=== PATIENT | male | born 1980 | race Caucasian/White ===

== ENCOUNTER → 2016-11-11 | Day surgery (SDC) | payer OTHER ==
[~2016-11-11] VITALS: Ht 182.9 cm; Wt 110.4 kg
[~2016-11-11] MED LIST: ACETAMINOPHEN 1000 MG/100 ML VIAL IV SCH; BUPIVACAINE/EPINEPHRINE 0.5% PF 30 ML VIAL INFIL ONE; DEXAMETHASONE SOD PHOS 4 MG/ML VIAL ONE; DICLOFENAC SODIUM 37.5 MG/ML VIAL IV PUSH ONE; DO NOT ADM ANY ANTICOAGULANT DRUGS XX PRN; FAMOTIDINE 20 MG/2 ML VIAL ONE; INSULIN HUMAN REGULAR 1,000 UNITS/10 ML VIAL SQ PRN; LACTATED RINGER'S 1000 ML INJ 1,000 ML IV ONE; LACTATED RINGER'S 1000 ML IV SCH; MEPERIDINE HCL 50 MG/ML VIAL ONE; METOPROLOL TARTRATE 25 MG TAB PO PRN; MIDAZOLAM HCL 2 MG/2 ML VIAL ONE; MORPHINE SULFATE 4 MG/ML INJ IV PRN; NEOSTIGMINE 3 MG/3 ML SYR IV ONE; ONDANSETRON HCL 4 MG/2 ML VIAL IV PRN; ONDANSETRON HCL 4 MG/2 ML VIAL IV PUSH ONE; ONDANSETRON HCL 4 MG/2 ML VIAL IV PUSH SCH; PROPOFOL 200 MG/20 ML AMP IV ONE; SODIUM CHLORID 0.9% 500 ML IV SCH; SODIUM CHLORIDE 5 ML FLUSH BID IVF SCH; SODIUM CHLORIDE 5 ML FLUSH PRN IVF; VANCOMYCIN 1,000 MG/NS 250ML (for <70 kg) IV SCH; ZOLO100T PO; fentaNYL CITRATE 250 MCG/5 ML AMP ONE; oxyCODONE/ACETAMINOPHEN 5 MG/325 MG TAB PO PRN
[2016-11-11 10:05] VITALS: BP 139/81; PULSE 44; RESP 18; TEMP 98.3; O2SAT 99
[2016-11-11] MEDS: metroNIDAZOLE 500 MG INJ 100 ML IV SCH ×2 (12:37→12:56)
[2016-11-11 16:15] VITALS: BP 121/59; PULSE 53; RESP 16; O2SAT 96
--- NOTE | 2016-11-19 07:51 | MP ---
cc: MARIO CLIFFORD DATE OF OPERATION 11/11/2016 DATE OF 1980 PREOPERATIVE DIAGNOSIS Left inguinal hernia POSTOPERATIVE DIAGNOSIS Left inguinal hernia PROCEDURE Laparoscopic repair of a left inguinal hernia TEPP with 12 x 15 Ultrapro mesh. SURGEON Mario Clifford MD CO-SURGEON MD Dr. Caesar Soto was needed for the preschool assistant during the procedure for visualization and manipulation. The preschool assistant provided by the hospital wall was utilized at the back table. ANESTHESIA General endotracheal anesthesia ESTIMATED BLOOD LOSS Scant FINDINGS Indirect inguinal hernia. COMPLICATIONS None OPERATION The patient was brought to the operating room and placed on operating table in the supine position. Bilateral sequential inflation devices placed on lower extremities. General anesthesia instituted. Ceron catheter placed. Antibiotics initiated. The abdomen was prepped and draped sterilely. The infraumbilical region was anesthetized with quarter percent Marcaine with epinephrine. A skin incision was made vertically. It was taken through the subcutaneous tissue. The anterior rectus sheath was encountered. It was incised to the left of the midline. The rectus muscle was retracted laterally. The preperitoneal space was dissected first with finger dissection followed by balloon dissection. A self-retaining balloon trocar was then placed. CO2 insufflated into the preperitoneal space to a pressure of 12 mmHg. The two 5 mm ports were placed in the midline infraumbilically. The dissection started at Antwon's ligament in the pubis followed by the direct space, reducing preperitoneal fat out of the direct hernia inguinal space. This space was dissected laterally to the psoas muscle. A lipoma of the cord was identified. This was retracted off of the cord. The hernia sac was also retracted off of the cord into the preperitoneal space. A 12 x 15 Ultrapro mesh was then used and placed into the preperitoneal space. It was deployed to cover the entire myomectomy lobe orifice covering the direct femoral and indirect space. This was performed using a secure strap securing it to Antwon's ligament, as well as the rectus muscles anteriorly. Care was taken to make sure peritoneum was below the mesh. Marcaine was insufflated into the preperitoneal space. CO2 was released. All ports were removed. The anterior rectus sheath was approximated with 0 Vicryl. All skin incisions closed with 4-0 Monocryl. The abdominal wall was cleaned and a sterile dressing placed. The patient was awakened and taken to recovery room. MD NICHOLAS Hall/JOVITA /8:04 AM /7:46 AM
== END | disposition home or self-care (01) ==
LOC: HSDC 07:51
PROVIDERS: ATTEND Surgery
DX: K40.90 Unilateral inguinal hernia, without obstruction or gangrene, not specified as recurrent (principal)
CPT/HCPCS: 00840; 49650; C1727; C1781; J0131; J1100; J1130; J2175; J2250; J2405; J2710; J3010; J3370; J7050; J7120